=== PATIENT | male | born 1960 | race Caucasian/White ===

== ENCOUNTER 2019-07-22 08:48 | Emergency (ER) | payer OTHER ==
--- OUTSIDE RECORDS SUMMARY | 2019-07-22 09:12 | XMS REPORT | Continuity of Care Document ---
:1960 External Reference #:[id number] Author Name Aakash Tai (transmitted by agent of provider Guera Barrett) Address [address] [place] [address] Care Team Providers Name Role Phone Aakash Tai MD - Internal Medicine Care Team Information [employer] [phone] Problems Active Problems Provider Date Stricture of esophagus Aakash Tai Onset: 01/20/2018 Peptic reflux disease Aakash Tai Onset: 01/20/2018 Social History Type Date Description Comments Sex Unknown ETOH Use Occasionally consumes alcohol Tobacco Use Start: Unknown End: Unknown Patient is a former smoker quit 2010 Allergies, Adverse Reactions, Alerts Active Allergies Reaction Severity Comments Date Penicillin 01/20/2018 Medications Active Medications SIG Qnty Indications Ordering Provider Date Omeprazole 1 by mouth every 90caps Aakash Tai 01/20/[address] Atorvastatin Calcium 1 by mouth every 90tabs Aakash Tai 01/20/2018 10mg day Tablets Naproxen 2 tablets every Unknown 250mg Tablets twice a day B-12 Unknown 1000mcg Capsules Vitamin E daily Unknown 400Unit Capsules Aspirin Childrens 3x a week Unknown 81mg Chewtabs Immunizations CPT Code Status Date Vaccine Lot # [id number] Given 06/24/2018 Influenza Virus (Afluria) Split Virus 3 Years Of [id number] Age And Older Vital Signs Date Vital Result Comment 04/15/2019 11:11am BP Systolic 132 mmHg BP Diastolic 86 mmHg Heart Rate 89 /min Height 69 inches 5'9" Weight 273.00 lb BMI (Body Mass Index) 40.3 kg/m2 O2 % BldC Oximetry 92 % 04/02/2019 10:27am BP Systolic 130 mmHg BP Diastolic 72 mmHg Heart Rate 77 /min Height 69 inches 5'9" Weight 279.00 lb BMI (Body Mass Index) 41.2 kg/m2 Results Test Date Facility Test Result H/L Range Note Laboratory test 04/08/2019 [facility] Magnesium 2.1 mg/dL Normal 1.8-2.4 [address] [place], [place] [id number] [phone] .Lipid Panel 04/08/2019 [facility] Cholesterol 176 mg /dL <[address] [place], [place] [id number] [phone] Triglycerides 91 mg/dL <150 3 HDL Cholesterol 51 mg/dL >40 4 LDL-Cholesterol 107 mg/dL < 100 5 General 04/08/2019 [facility] Thyroid Stim 1.60 uIU/ mL Normal 0.30-4.20 Health Panel [address] [place] [place] [address] [phone] Free T4 1.05 ng/dL Normal 0.76-1.46 .CBC W/Auto 04/08/2019 [facility] White Blood 5.2 K/ uL Normal 3.4-10.[address] [place] [address] [phone] Red Blood Count 4.72 M/uL Normal 4.20-5.80 Hemoglobin 15.0 gm/dL Normal 12.8-17.0 Hematocrit 43.2 % Normal 38.0-48.0 Mean Cell Volume 91.5 fl Normal 80.0-96.0 Mean Corpuscular HGB 31.8 pg Normal 27.0-33.0 Mean Corpuscular HGB Conc 34.7 g/dL Normal 31.7-36.0 Platelet Count 214 K/uL Normal 155-360 Red Cell Distri Width SD 40.5 fl Normal 36-51 Red Cell Distri Width %CV 12.1 % Normal 11.6-15.8 Mean Platelet Volume 11.3 fl High 6.6-10.6 Neut% 45.5 % Normal 33.0-73.0 Lymph % 36.3 % Normal 20.0-42.0 [place] % 11.4 % High 0.0-10.0 Eo% 5.8 % Normal 0.0-6.6 Bas% 0.8 % Normal 0.0-1.1 Immature Grans 0.2 % Normal 0.0-5.0 NRBC % 0.0 /100WBC < 10/ 100 WBC Neut# 2.36 K/uL Normal 1.8-7.0 Lymph # 1.88 K/uL Normal 1.0-4.0 [place] # 0.59 K/uL Normal 0.0-0.8 Eos # 0.30 K/uL Normal 0.0-0.5 Baso # 0.04 K/uL Normal 0.0-0.1 Immature Grans Absolute 0.01 K/uL NRBC # 0.00 K/uL Comprehensive 04/08/2019 [facility] Glucose 113 mg/ dL High 74-106 Metabolic Panel [address] [place], [place] [id number] [phone] BUN 22 mg/dL High 7-18 Creatinine 0.9 mg/dL Normal 0.6-1.3 Glom Filtration Rate, Estimate >60 mL/min >60 If >60 mL/min >60 6 BUN/Creat 24.4 ratio Sodium 137 mmol/L Normal 136-145 Potassium 3.9 mmol/L Normal 3.5-5.1 Chloride 106 mmol/L Normal 98-107 Carbon Dioxide 24 mmol/L Normal 21-32 Anion Gap 7 mEq/L Low 8-16 Calcium 8.9 mg/dL Normal 8.5-10.1 Total Protein 7.6 g/dL Normal 6.4-8.2 Albumin 4.0 g/dL Normal 3.4-5.0 Globulin 3.6 g/dL Normal 1.9-4.3 Alb/Glob 1.1 ratio Bilirubin,Total 0.7 mg/dL Normal 0.2-1.0 Sgot/Ast 31 U/L Normal 15-37 SGPT/Alt 59 U/L Normal 12-78 Alkaline Phosphatase 74 U/L Normal 45-117 Laboratory test 04/08/2019 [facility] Thyroxine 8.4 g/dL Normal 4.7-13.[address] (T[address]) [place], [place] [id number] [phone] 1 R25.2 I11.9 2 Reference Guidelines*: Desirable: ........... < 200 mg/dL Borderline High: ..... 200-239 mg/dL High: ................ >= 240 mg/dL * The National Cholesterol Education Program (NCEP) 3 Reference Guidelines*: Normal: ............. < 150 mg/dL Borderline High: .... 150-199 mg/dL High: ............... 200-499 mg/dL Very High: .......... > 500 mg/dL * Source: National Cholesterol Education Program (NCEP) 4 Reference Guidelines*: Low HDL: ..... < 40 mg/dL Normal: ..... 40-60 mg/dL Desirable: ... > 60 mg/dL *The National Cholesterol Education Program(NCEP) 5 Reference Guidelines*: Optimal:........... <100 mg/dL Near Optimal....... 100-129 mg/dL Borderline High.... 130-159 mg/dL High............... 160-189 mg/dL Very High.......... >=190 mg/dL * Source: National Cholesterol Education Program (NCEP) 6 Note: Persistent reduction for 3 months or more in an eGFR <60 mL/min/1.73 m2 defines CKD. Patients with eGFR values >/=60 mL/min/1.73 m2 may also have CKD if evidence of persistent proteinuria is present. The original MDRD equation for estimated GFR is not valid for patients less than 18 years of age. Additional information may be found at www.kdoqi.org. Procedures Date Code Description Status 04/13/2019 53560 EKG-Tracing & Report Completed Medical Devices Description No Information Available Encounters Type Date Location Provider Dx Diagnosis Office Visit 04/15/2019 11:00a Main Office Aakash Tai I11.9 Hypertensive heart disease without heart failure K73.9 Chronic hepatitis, unspecified K21.9 Gastro-esophageal reflux disease without esophagitis E78.5 Hyperlipidemia, unspecified J44.9 Chronic obstructive pulmonary disease, unspecified I34.0 Nonrheumatic mitral (valve) insufficiency N40.0 Benign prostatic hyperplasia without lower urinry tract symp R73.01 Impaired fasting glucose Office Visit 04/02/2019 10:15a Main Office Zaire Aakash R25.2 Cramp and spasm I11.9 Hypertensive heart disease without heart failure K73.9 Chronic hepatitis, unspecified E78.5 Hyperlipidemia, unspecified K21.9 Gastro-esophageal reflux disease without esophagitis Assessments Date Code Description Provider 04/15/2019 I11.9 Hypertensive heart disease without heart failure Zaire Aakash 04/15/2019 K73.9 Chronic hepatitis, unspecified Gauss, Aakash 04/15/2019 K21.9 Gastro-esophageal reflux disease without esophagitis Elliottuss , Aakash 04/15/2019 E78.5 Hyperlipidemia, unspecified Gauss, Aakash 04/15/2019 J44.9 Chronic obstructive pulmonary disease, unspecified Gauss, Aakash 04/15/2019 I34.0 Nonrheumatic mitral (valve) insufficiency Zaire, Aakash 04/15/2019 N40.0 Benign prostatic hyperplasia without lower urinary Zaire Aakash tract symptoms 04/15/2019 R73.01 Impaired fasting glucose Zaire Aakash 04/13/2019 E78.2 Mixed hyperlipidemia Zaire, Aakash 04/02/2019 R25.2 Cramp and spasm Elliottsatya, Aakash 04/02/2019 I11.9 Hypertensive heart disease without heart failure Zaire Aakash 04/02/2019 K73.9 Chronic hepatitis, unspecified Gauss, Aakash 04/02/2019 E78.5 Hyperlipidemia, unspecified Gasatya, Aakash 04/02/2019 K21.9 Gastro-esophageal reflux disease without esophagitis Aakash Tai Plan of Treatment Future Appointment(s):07/15/2019 9:30 am - Nurse at Main Ex[facility]ia2107/14/2019 4: 30 pm - Ultrasound at Main Plfzrb3107/20/2019 12:00 pm - Aakash Tai at Main Wpeycb8204/15/2019 - Milo Tai11.9 Hypertensive heart disease without heart failureComments:CONT. TO MONITOR BP, CONT. LOW SALT DIET Discussed lifestyle factors and role of diet and excerns incontrol of disease and treatment goals and targets. Medication side effects and compliance issues addressed as indicated. The importance of ongoing self monitoring of BP and the symptoms of complications such as TIA, CVA and AMI reviewed. The importance of reporting changes in between visits and side effects stressed. monitoring of patient provided BP checks and laboratory tests related to medicationreviewed. Discussed lifestyle factors and role of diet and excerns in control of disease and treatment goals and targets. Medication side effects and compliance issues addressed as indicated. The importance of ongoing self monitoring of BP and the symptoms of complications such as TIA, CVA and AMI reviewed. The importance of reporting changes in between visits and side effects stressed. monitoring of patient provided BP checks and laboratory tests related to medication reviewed.K73.9 Chronic hepatitis, [id number] Gastro-esophageal reflux disease without esophagitisComments:Discussed role of diet and excersize and weight reduction and contribution of common exacerbating factors/ substances such as stress/fatigue/caffeine/nicotine/chocolate/ foods.Signs and symptoms of disease progression discussed as well as necessity to promptly report changes or worsening and the need for medication compliance. Periodic measurement and follow up for serum Magnesium levels while on PPI.E78.5 Hyperlipidemia, unspecifiedComments:Counselled on role of diet and excersize and importance to keep compliance with medication if prescribed and side effects. The importance of routine monitoring of blood lipids and liver tests to managetreatment and avoid side effects were discussed. Usual follow up is 3 months for LFT and Lipid profile. Patient education including dietary guidelines and materials provided.J44.9 Chronic obstructive pulmonary disease, unspecifiedComments: Discussed importance of excersize and avoidance of all smoke. Enviromental factors that can spark exacerbations reviewed. The necessity of reporting any changes in condition, early intervention in exacerbations and proper useand the importance of compliance with medications. Reports if applicable of home care providers, and equipment suppliers and Respiratory Therapy reviewed.I34.0 Nonrheumatic mitral (valve) insufficiencyComments:Issues of symptoms and aggravating lifestyle factors such as sleep, stress and dietary choices discussed. Symptoms and medication treatment and compliance and side effects discussed as needed. Need forSBE prophalaxis with antibiotics addressed and discussed where indicated. Follow up Echocardiogram as required.Discussed valvular pathology and need if indicated for antibiotic prophylaxis to prevent S.B.E. Medication compliance and side effects issues addressed. Follow up echocardiogram as warranted.Results of 2D echo and other testing reviewed and discussed with patient possible etiologies, progression prognosis and need for prophylactic antibiotics before dental procedures if warranted for S.B.E. prophylaxis. Routine follow up/ surveillance planned.N40.0 Benign prostatic hyperplasia without lower urinary tract symptomsComments:yearly digital examyearly psaSymptoms and signs reviewed and therapy such as medication, vitamins, diet supplements and their risks and benefits discussed. Symptom progression and referral to urology as appropriate for symptom progression and severity discussed and ordered. The importance of medication compliance when appropriate discussed and the effects of other medications such as antihistamines and OTC cold medicines considered and discussed with patient. Lab work as appropriate and follow up symptomatically and with ROXANNE yearly arrangedyearly digital examyearly psaSymptoms and signs reviewed and therapy such as medication, vitamins, diet supplements and their risks and benefits discussed. Symptom progression and referral to urology as appropriate for symptom progression and severity discussedand ordered. The importance of medication compliance when appropriate discussed and the effects of other medications such as antihistamines and OTC cold medicines considered and discussed with patient.Lab work as appropriate and follow up symptomatically and with ROXANNE yearly [id number] Impaired fasting glucoseComments:diet and exerise Functional Status Description No Information Available Mental Status Description No Information Available Referrals Description No Information Available
[2019-07-22 09:23] VITALS: BP 154/92
--- NOTE | 2019-07-22 10:26 | UC ---
Hand/Wrist HPI - HPI Summary HPI Summary: right wrist pain x 1 day left side rib pain x 1 day s/p fall at work . slipped and lost footing on a wet surface fell on his left side and injury to his left ribs, at the same time injured his right wrist trying to catch himself wrist pain is 6 out of 10, worse with movement, better with ice - History Of Current Complaint Chief Complaint: UCUpperExtremity Stated Complaint: SP FALL-RT WRIST INJURY-LT RIB PAIN Time Seen by Provider: 07/22/19 09:42 Hx Obtained From: Patient Onset/Duration: Sudden Onset, Lasting Days - 1, Still Present Severity Initially: Moderate Severity Currently: Moderate Pain Intensity: 4 Character Of Pain: Aching Aggravating Factor(s): Movement, Lifting Associated Signs And Symptoms: Positive: Swelling, Weakness. Negative: Redness , Bruising, Fever, Numbness/Tingling - Allergies/Home Medications Allergies/Adverse Reactions: Allergies Allergy/AdvReac Type Severity Reaction Status Date / Time Penicillins Allergy Anaphylatic Verified 07/22/19 09:17 Shock Home Medications: Home Medications Atorvastatin* [Lipitor*] 20 mg PO QPM 07/22/19 [History Confirmed 07/22/19] Naproxen Sodium [Aleve] 1 tab PO QAM 07/22/19 [History Confirmed 07/22/19] Omeprazole 20 mg PO DAILY 07/22/19 [History Confirmed 07/22/19] PMH/Surg Hx/FS Hx/Imm Hx GI/ History: Gastroesophageal Reflux - Surgical History Surgical History: Yes Surgery Procedure, Year, and Place: umbilical hernia repair 2016 - Family History Known Family History: Positive: Hypertension - Social History Alcohol Use: Daily Substance Use Type: None Smoking Status (MU): Former Smoker When Did the Patient Quit Smoking/Using Tobacco: 1998 Review of Systems All Other Systems Reviewed And Are Negative: Yes Constitutional: Positive: Negative Skin: Positive: Negative Eyes: Positive: Negative ENT: Positive: Negative Is Patient Immunocompromised?: No Physical Exam Triage Information Reviewed: Yes Appearance: Well-Appearing, Well-Nourished, Pain Distress Vital Signs: Initial Vital Signs Temp 97.9 F 07/22/19 09:19 Pulse 73 07/22/19 09:19 Resp 16 07/22/19 09:19 BP 154/92 07/22/19 09:19 Pulse Ox 98 07/22/19 09:19 Vital Signs Reviewed: Yes Eyes: Positive: Conjunctiva Clear ENT: Positive: Normal ENT inspection, Hearing grossly normal, Pharynx normal Neck: Positive: Supple, Nontender, No Lymphadenopathy Respiratory: Positive: Chest non-tender, Lungs clear, Normal breath sounds Cardiovascular: Positive: RRR, No Murmur, Pulses Normal Abdominal Exam: Normal Musculoskeletal: Positive: Other: - left ribs : no swelling, no bruising , + tenderness at 5,6,7 right wrist : + swelling, tenderness ulnar wrist, pain with flexion , limited strength Diagnostics - Radiology No standard instances Radiology Interpretation Completed By: Radiologist Summary of Radiographic Findings: xray report right wrist : PROBABLE NONDISPLACED FRACTURE OF THE STYLOID PROCESS OF THE ULNA, WITH AVULSION FRACTURE OF THE DORSAL ASPECT OF THE WRIST, LIKELY A TRIQUETRAL AVULSION FRACTURE Hand/Wrist Course/Dx - Differential Dx/Diagnosis Provider Diagnosis: Fracture of right wrist, Contusion of rib on left side Discharge ED - Sign-Out/Discharge Documenting (check all that apply): Patient Departure All imaging exams completed and their final reports reviewed: Yes - Discharge Plan Condition: Stable Disposition: HOME Patient Education Materials: Wrist Fracture in Adults (ED), Rib Contusion (ED) Forms: *Work Release Referrals: Mynor Miller MD [Medical Doctor] - As Soon As Possible Abner Stewart [Primary Care Provider] - - Billing Disposition and Condition Condition: STABLE Disposition: Home
== END 2019-07-22 10:24 | disposition home or self-care (01) ==
LOC: UCCORT 08:48
DX: S62.101A Fracture of unspecified carpal bone, right wrist, initial encounter for closed fracture (principal); S20.20XA Contusion of thorax, unspecified, initial encounter; K21.9 Gastro-esophageal reflux disease without esophagitis; Z79.899 Other long term (current) drug therapy; Z87.891 Personal history of nicotine dependence; Z88.0 Allergy status to penicillin; W01.0XXA Fall on same level from slipping, tripping and stumbling without subsequent striking against object, initial encounter; Y92.9 Unspecified place or not applicable; Y99.0 Civilian activity done for income or pay
CPT/HCPCS: 99212; G0463